=== PATIENT | female | born 1965 | race Caucasian/White ===

== ENCOUNTER → 2017-01-24 | Outpatient (CLI) | payer OTHER ==
[~2017-01-24] MED LIST: LEXA5SOL PO; METO100T7 PO; SIMV20 PO
[2017-01-24 07:30] LABS: ALKALINE PHOSPHATASE 75 U/L (45-117); HDL CHOLESTEROL 50.9 MG/DL (40.0-60.0); TOTAL BILIRUBIN ADULT 0.3 MG/DL (0.2-1.0)
[2017-01-24 07:32] LABS: ALT (GPT) 25 U/L (10-53); ANION GAP 7 MEQ/L (5-15); AST (GOT) 19 U/L (15-37); BICARBONATE 27.4 MEQ/L (21.0-32.0); BLOOD UREA NITROGEN 11 MG/DL (7-18); CHLORIDE 104 MEQ/L (98-107); GLOMERULAR FILTRATION RATE 82 ML/MIN (>89); GLUCOSE,FASTING 102 MG/DL (74-99); POTASSIUM 4.1 MEQ/L (3.5-5.1); SODIUM (NA) 138 MEQ/L (136-145)
[2017-01-24 07:33] LABS: LDL CHOLESTEROL 118 MG/DL (0-99)
[2017-01-24 16:34] LABS: HEMOGLOBIN A1a 1.1 %; HEMOGLOBIN A1b 1.8 %; HEMOGLOBIN Ao 84.6 %; HEMOGLOBIN P3 3.9 %
== END ==
LOC: CLAB 06:33
PROVIDERS: ATTEND Family Medicine
DX: I10 Essential (primary) hypertension (principal); R73.09 Other abnormal glucose; E78.2 Mixed hyperlipidemia
CPT/HCPCS: 36415; 80053; 80061; 83036

== ENCOUNTER 2017-12-02 11:05 | Emergency (ER) | payer OTHER ==
[~2017-12-02] VITALS: Ht 167.6 cm; Wt 98.0 kg
[2017-12-02 11:08] VITALS: BP 177/104; PULSE 98; RESP 16; TEMP 98.4; O2SAT 99
--- NOTE | 2017-12-02 11:44 | PD ---
HPI Chief Complaint: Injury Time Seen by Provider: 11:29 Travel History International Travel<30 days: No Contact w/Intl Traveler<30days: No Traveled to known affect area: No History of Present Illness HPI 52-year-old female presents the emergency department with left knee pain. Patient states she has had ongoing knee pain for approximately 1 month, and made an appointment with Dr. Quarles in the orthopedic for the end of December. She states 2 days ago she was in her kitchen when she twisted in her left knee "popped" and now feels like it wants to give out, and is more painful , to the point having difficulty ambulating. She has been taking over-the- counter ibuprofen without much improvement. She states there is some swelling, and her pain is 8 out of 10 with ambulation. She noticed some swelling behind the left knee prior to a "popping". She has no known drug allergies PFSH Social History Alcohol Use: No Tobacco Use: No Substance Use: No Allergies-Medications (Allergen,Severity, Reaction): Coded Allergies: No Known Allergies (Verified , 05/18/16) Uncoded Allergies: NKA (Allergy, Unknown, 06/23/03) Reported Meds & Prescriptions Reported Meds & Active Scripts Active Reported Lexapro (Escitalopram Oxalate) 5 Mg/5 Ml Susie 10 Mg PO DAILY Simvastatin 20 mg (Simvastatin) 20 Mg Tab 1 Tab PO HS Metoprolol/HCTZ 50 mg/25 mg Tab 1 Tab PO BID Review of Systems Except as stated in HPI: all other systems reviewed are Neg General / Constitutional: No: Fever Eyes: No: Visual changes HENT: No: Headaches Cardiovascular: No: Chest Pain or Discomfort Respiratory: No: Shortness of Breath Gastrointestinal: No: Abdominal Pain Genitourinary: No: Dysuria Musculoskeletal: Positive: Arthralgias, Limited ROM, Pain Skin: No Rash Neurologic: No: Weakness Psychiatric: No: Depression Endocrine: No: Polydipsia Hematologic/Lymphatic: No: Easy Bruising Physical Exam Narrative GENERAL: Patient appears in mild distress per SKIN: Warm and dry. Normal color. Normal turgor. No signs of ecchymosis or erythema. HEAD: Atraumatic. Normocephalic. EYES: Pupils equal and round. No scleral icterus. No injection or drainage. ENT: No nasal bleeding or discharge. Mucous membranes pink and moist. Pharynx is clear NECK: Trachea midline. Supple and nontender CARDIOVASCULAR: Regular rate and rhythm. RESPIRATORY: No accessory muscle use. Clear to auscultation. Breath sounds equal bilaterally. GASTROINTESTINAL: Abdomen soft, non-tender, nondistended. Hepatic and splenic margins not palpable. MUSCULOSKELETAL: Extremities without clubbing, cyanosis, or edema. No obvious deformities. He does appear to be a mild effusion to the knee bilaterally with tenderness above the patella as well as posteriorly in the popliteal fossa. There is no significant laxity noted with varus or valgus stress. Glenn's test is not performed secondary to patient's discomfort. NEUROLOGICAL: Awake and alert. No obvious cranial nerve deficits. Motor grossly within normal limits. Five out of 5 muscle strength in the arms and legs. Normal speech. PSYCHIATRIC: Appropriate mood and affect; insight and judgment normal. Data Data Last Documented VS Vital Signs Date Time Temp Pulse Resp B/P (MAP) Pulse Ox O2 Delivery O2 Flow Rate FiO2 12/02/17 11:08 98.4 98 16 177/104 (128) 99 Orders Orders Knee, Complete (4vws) (12/02/17 11:20) Ice/Cold Pack (12/02/17 11:20) Splint Or Brace Apply/Monitor (12/02/17 12:11) Mri Joint Knee W/O Contrast (12/02/17 ) [facility] Medical Decision Making Medical Screen Exam Complete: Yes Emergency Medical Condition: Yes Differential Diagnosis Left knee pain. Cartilage tear. Zapata's cyst. Knee effusion. Narrative Course X-ray of the left knee is obtained. X-ray shows: No bony fracture or dislocation. There is signs of effusion. MRI of the left knee ordered. MRI shows: 2 abnormal areas of signal involving the medial meniscus with a questionable horizontal undersurface tear of the posterior horn and a questionable tear involving the posterior horn medial meniscal root. Moderate joint effusion. Patient is placed in a knee immobilizer Patient is given ibuprofen 600 mg 3 times daily #30 Patient is to ice the area frequently Work note is given stating she must wear knee immobilizer until cleared by orthopedist Patient to follow-up with Dr. Barajas as scheduled or sooner if possible. Diagnosis Primary Impression: Effusion of left knee Additional Impression: Medial meniscus tear Qualified Codes: S83.242A - Other tear of medial meniscus, current injury, left knee, initial encounter Referrals: Tom Barajas MD ([facility]) Patient Instructions: General Instructions, Knee Immobilizer (ED), Swollen Knee Joint (ED) Departure Forms: Work Release Special Instructions: Patient must wear knee immobilizer until cleared by orthopedist Additional Instructions: X-ray shows: No bony fracture or dislocation. There is signs of effusion. MRI of the left knee ordered. MRI shows: 2 abnormal areas of signal involving the medial meniscus with a questionable horizontal undersurface tear of the posterior horn and a questionable tear involving the posterior horn medial meniscal root. Moderate joint effusion. Patient is placed in a knee immobilizer Patient is given ibuprofen 600 mg 3 times daily #30 Patient is to ice the area frequently Work note is given stating she must wear knee immobilizer until cleared by orthopedist Patient to follow-up with Dr. Barajas as scheduled or sooner if possible. Med/Other Pt SpecificInfo: Prescription(s) given Disposition: 01 DISCHARGE HOME Condition: Stable Eleuterio Brice Dec 02, 2017 11:44
--- NOTE | 2017-12-02 12:04 | RADRPT ---
EXAM DATE/TIME: 12/02/2017 11:45 [facility] COMPARISON: No previous studies available for comparison. INDICATIONS : Left knee pain. Patient states she felt a pop in her knee yesterday. Unable to bear weight on left le g. MEDICAL HISTORY : None. SURGICAL HISTORY : None. ENCOUNTER: Initial ACUITY: 2 days PAIN SCORE: 6/10 LOCATION: Left knee. FINDINGS: Four view examination of the left knee demonstrates no evidence of fracture or dislocation. Bony min eralization is normal. The articular surfaces are intact. There is fullness in the suprapatellar re gion, and the effusion cannot be excluded. No radiopaque foreign bodies. CONCLUSION: 1. No evidence of fracture or dislocation. 2. Mild distention of the suprapatellar soft tissues suggests possible knee effusion. Alfred Shah MD on December 02, 2017 at 12:01 Board Certified Radiologist. This report was verified electronically.
--- NOTE | 2017-12-02 12:55 | RADRPT ---
EXAM DATE/TIME: 12/02/2017 12:25 [facility] COMPARISON: No previous studies available for comparison. INDICATIONS : Internal derangement. Left knee pain. MEDICAL HISTORY : Hypertension. SURGICAL HISTORY : Oophrectomy ENCOUNTER: Initial ACUITY: 1 week PAIN SCORE: 5/10 LOCATION: Left knee TECHNIQUE: Multiplanar, multisequence MRI examination was performed without contrast. FINDINGS: CRUCIATE LIGAMENTS: ACL and PCL are intact. MENISCI: There is globular grade 2 signal within the posterior horn medial meniscus. There may be a small hori zontal undersurface tear (series 5 image 21). There is also significant edema at the posterior horn m edial meniscal root could be a small tear which could be a stabilizing to the meniscus. The lateral m eniscus is unremarkable COLLATERAL LIGAMENTS: MCL and LCL complexes are intact. BONE/CARTILAGE: Bone marrow signal is homogeneous. Articular cartilage signal is within normal limits. MISCELLANEOUS: Moderate sized joint effusion. Extensor mechanism is intact. CONCLUSION: 2 abnormal areas of signal involving the medial meniscus with a questionable horizontal undersurface tear of the posterior horn and a questionable tear involving the posterior horn medial meniscal root. Moderate joint effusion. Jorge L Skinner MD on December 02, 2017 at 12:51 Board Certified Radiologist. This report was verified electronically.
[2017-12-02] MEDS ORDERED: IBUP-232 PO (13:01)
== END 2017-12-02 13:19 | disposition home or self-care (01) ==
LOC: NEPK 11:05
DX: S83.242A Other tear of medial meniscus, current injury, left knee, initial encounter (principal); X50.1XXA Overexertion from prolonged static or awkward postures, initial encounter; Y92.000 Kitchen of unspecified non-institutional (private) residence as the place of occurrence of the external cause
CPT/HCPCS: 73564; 73721; 99284; L1830

== ENCOUNTER → 2018-01-31 | Outpatient (CLI) | payer OTHER ==
[~2018-01-31] MED LIST changes: +IBUP-232 PO
[2018-01-31 08:07] LABS: AUTOMATED NEUTROPHIL # 12.3 TH/MM3 (1.8-7.7); BASOPHIL # 0.1 TH/MM3 (0-0.2); BASOPHIL % 0.7 % (0.0-2.0); EOSINOPHIL # 0.3 TH/MM3 (0-0.4); EOSINOPHIL % 1.9 % (0.0-4.0); HEMOGLOBIN 14.5 GM/DL (11.6-15.3); LYMPH % 14.2 % (9.0-44.0); LYMPHOCYTE # 2.3 TH/MM3 (1.0-4.8); MEAN CELL VOLUME 90.7 FL (80.0-100.0); MEAN CORPUSCULAR HGB CONC 33.1 % (32.0-36.0); MEAN PLATELET VOLUME 8.3 FL (7.0-11.0); MONO % 6.2 % (0.0-8.0); PLATELET COUNT 321 TH/MM3 (150-450); RED BLOOD COUNT 4.85 MIL/MM3 (4.00-5.30); RED CELL DISTRIBUTION WIDTH 14.2 % (11.6-17.2)
[2018-01-31 08:35] LABS: CHOLESTEROL/ HDL RATIO 4.85 RATIO; FREE T4 0.9 NG/DL (0.76-1.46); HDL CHOLESTEROL 47.4 MG/DL (40.0-60.0)
== END ==
LOC: CLAB 07:43
PROVIDERS: ATTEND Family Medicine
DX: I10 Essential (primary) hypertension (principal); E78.2 Mixed hyperlipidemia; F32.4 Major depressive disorder, single episode, in partial remission
CPT/HCPCS: 36415; 80061; 84439; 84443; 85025